=== PATIENT | male | born 1970 | race African-American/Black ===

== ENCOUNTER 2018-08-14 13:34 | Inpatient (IN) | payer OTHER ==
[2018-08-14 13:56] VITALS: BMI 25.1
--- NOTE | 2018-08-14 14:21 | HP ---
CIWA Score Nausea/Vomitin-Mild Nausea/No Vomiting Muscle Tremors: 4-Moderate,w/Arms Extend Anxiety: 4-Mod. Anxious/Guarded Agitation: 0-Normal Activity Paroxysmal Sweats: No Perspiration Orientation: 1-Uncertain about Date Tacttile Disturbances: 0-None Auditory Disturbances: 1-Very Mild Visual Disturbances: 1-Very Mild Sensitivity Headache: 2-Mild CIWA-Ar Total Score: 14 - Admission Criteria [facility]ASAS Guidelines: Admission for Medically Managed Detox: Requires at least one of the followin. CIWA greater than 12 2. Seizures within the past 24 hours 3. Delirium tremens within the past 24 hours 4. Hallucinations within the past 24 hours 5. Acute intervention needed for co occurring medical disorder 6. Acute intervention needed for co occurring psychiatric disorder 7. Severe withdrawal that cannot be handled at a lower level of care (continued vomiting, continued diarrhea, abnormal vital signs) requiring intravenous medication and/or fluids 8. Patient presents the following: CIWA greater than 12 Admission Criteria Met: Admission criteria met Admission ROS S - HPI Chief Complaint: I'm tired, I just need to stop it, stop using Allergies/Adverse Reactions: Allergies Allergy/AdvReac Type Severity Reaction Status Date / Time fish derived Allergy Severe Itching Verified 08/14/18 14:08 shellfish derived Allergy Severe Itching Verified 08/14/18 14:08 No Known Drug Allergies Allergy Verified 08/14/18 14:08 seafood Allergy Severe Itching Uncoded 08/14/18 14:08 History of Present Illness: 48 yo gentleman here for detox from alcohol, also using crack/cocaine. Denies seizures but has had black outs. States he gets very shaky if he tries to stop drinking. Exam Limitations: No Limitations - Ebola screening Have you traveled outside of the country in the last 21 days: No (N) Have you had contact with anyone from an Ebola affected area: No Have you been sick,other than usual withdrawal symptoms: No Do you have a fever: No - Review of Systems Constitutional: Loss of Appetite, Malaise, Night Sweats, Changes in sleep, Weakness EENT: reports: No Symptoms Reported Respiratory: reports: No Symptoms reported Cardiac: reports: No Symptoms Reported GI: reports: Nausea, Poor Appetite, Poor Fluid Intake, Indigestion, Abdominal cramping : reports: Frequency Musculoskeletal: reports: No Symptoms Reported Integumentary: reports: Dryness Neuro: reports: Headache, Tremors Endocrine: reports: No Symptoms Reported Hematology: reports: No Symptoms Reported Psychiatric: reports: Judgement Intact, Mood/Affect Appropiate, Orientated x3, Anxious Other Systems: Reviewed and Negative Patient History - Patient Medical History Hx Anemia: No Hx Asthma: No Hx Chronic Obstructive Pulmonary Disease (COPD): No Hx Cancer: No Hx Cardiac Disorders: No Hx Congestive Heart Failure: No Hx Hypertension: No Hx Hypercholesterolemia: No Hx Pacemaker: No HX Cerebrovascular Accident: No Hx Seizures: No Hx Diabetes: No Hx Gastrointestinal Disorders: No Hx Liver Disease: No Hx Genitourinary Disorders: No Hx Sexually Transmitted Disorders: No Hx Renal Disease (ESRD): No Hx Thyroid Disease: Yes (PT. CLAIMS HE HAD HYPOTHYROIDISM,WAS ON SYNTHROID,HIS DR STOPPED MEDS.) Hx Human Immunodeficiency Virus (HIV): No Hx Hepatitis C: No Hx Depression: No Hx Suicide Attempt: No (denies) Hx Bipolar Disorder: No Hx Schizophrenia: No - Patient Surgical History Past Surgical History: No Hx Neurologic Surgery: No Hx Cataract Extraction: No Hx Cardiac Surgery: No Hx Lung Surgery: No Hx Breast Surgery: No Hx Breast Biopsy: No Hx Abdominal Surgery: No Hx Appendectomy: No Hx Cholecystectomy: No Hx Genitourinary Surgery: No Hx Section: No Hx Orthopedic Surgery: No Other Surgical History: TRAUMATIC BRAIN INJURY AT AGE 17 - in coma 1.5 months Anesthesia Reaction: No - PPD History Previous Implant?: Yes Documented Results: Positive w/o proof (states he took INH) Implanted On Prior [facility] Admission?: No PPD to be Administered?: No - Reproductive History Patient is a Female of Child Bearing Age (11 -55 yrs old): No (male) - Smoking Cessation Smoking history: Current every day smoker Have you smoked in the past 12 months: Yes Aproximately how many cigarettes per day: 5 Cigars Per Day: 0 Hx Chewing Tobacco Use: No Initiated information on smoking cessation: Yes 'Breaking Loose' booklet given: 08/14/18 (give on floor) - Substance & Tx. History Hx Alcohol Use: Yes Hx Substance Use: Yes Substance Use Type: Alcohol, Cocaine, Marijuana Hx Substance Use Treatment: Yes (detox, rehab, [facility]) - Substances Abused Alcohol Route: Oral Frequency: Daily Amount used: 1 [place] Age of first use: 17 Date of Last Use: 08/13/18 Crack Route: Smoking Frequency: Daily Amount used: $20 BAG Age of first use: 17 Date of Last Use: 08/14/18 Marijuana/Hashish Route: Smoking Frequency: Daily Amount used: $5 Age of first use: 10 Date of Last Use: 08/13/18 Family Disease History - Family Disease History Family Disease History: Other: Grandparent ( - old age), Father ( , AIDS, drugs and etoh), Mother (living - no contact), Brother (eight, ? HYPERTHYROIDISM ?), Sister (three living - healthy) Admission Physical Exam [facility] - Vital Signs Vital Signs: Vital Signs - 24 hr 08/14/18 13:54 Temperature 97.1 F L Pulse Rate 56 L Respiratory 18 Rate Blood Pressure 98/60 - Physical General Appearance: Yes: Nourished, Appropriately Dressed, Moderate Distress, Tremorous, Irritable, Anxious HEENTM: Yes: Hearing grossly Normal, Normocephalic, Normal Voice, Pharynx Normal Respiratory: Yes: No Respiratory Distress, Rhonchi Neck: Yes: No masses,lesions,Nodules Breast: Yes: Breast Exam Deferred Cardiology: Yes: Regular Rhythm, Regular Rate Abdominal: Yes: Non Tender, Flat, Soft Genitourinary: Yes: Frequency Back: Yes: Normal Inspection Musculoskeletal: Yes: full range of Motion, Gait Steady Extremities: Yes: Normal Inspection, Non-Tender Neurological: Yes: Alert, Normal Mood/Affect, Normal Response Integumentary: Yes: Normal Color, Dry, Warm Lymphatic: Yes: Within Normal Limits - Diagnostic (1) Alcohol dependence with uncomplicated withdrawal Current Visit: Yes Status: Chronic (2) Cocaine dependence Current Visit: Yes Status: Acute (3) Nicotine dependence Current Visit: Yes Status: Chronic Qualifiers: Nicotine product type: cigarettes Substance use status: uncomplicated Qualified Code(s): F17.210 - Nicotine dependence, cigarettes, uncomplicated (4) PPD positive, treated Current Visit: Yes Status: Chronic (5) Cannabis dependence Current Visit: Yes Status: Chronic Cleared for Admission [facility] - Detox or Rehab [facility] Level of Care: Medically Managed Detox Regimen/Protocol: Librium [facility] Breath Alcohol Content Breath Alcohol Content: 0 Urine Drug Screen - Results Drug Screen Negative: No Urine Drug Screen Results: THC-Marijuana, RICKY-Cocaine
[2018-08-14] MEDS ORDERED: MAGNESIUM CITRATE 300 ML BOTTLE PO PRN (14:22)
[2018-08-14] MEDS ORDERED: MAGNESIUM HYDROX 2400MG/30ML ORAL SUSPENSION 30 ML CUP PO PRN (14:22)
[2018-08-14] MEDS ORDERED: NICOTINE POLACRILEX 4 MG GUM BUC PRN (14:22)
[2018-08-14] MEDS ORDERED: chlordiazePOXIDE HCL 25 MG CAPSULE PO PRN (14:22)
[2018-08-14] MEDS ORDERED: P-EPHED 60MG/TRIPROLIDI 2.5MG TABLET PO PRN (14:22)
[2018-08-14] MEDS ORDERED: guaiFENesin/D-METHORPHAN HB 10 ML UNIT-DOSE CUPS PO PRN (14:22)
[2018-08-14] MEDS ORDERED: MAG HYDROX/AL HYDROX/SIMETH 30 ML UNIT-DOSE CUP PO PRN (14:22)
[2018-08-14] MEDS ORDERED: IBUPROFEN 400 MG TABLET (FP) PO PRN (14:22)
[2018-08-14] MEDS ORDERED: LOPERAMIDE HCL 2 MG CAPSULE PO PRN (14:22)
[2018-08-14] MEDS ORDERED: MENTHOL/PHENOL 1 EACH UD MM PRN (14:22)
[2018-08-14] MEDS ORDERED: ACETAMINOPHEN 325 MG TABLET (FP) PO PRN (14:22)
[2018-08-14] MEDS: chlordiazePOXIDE HCL 25 MG CAPSULE PO SCH (17:39)
[2018-08-15] MEDS: THIAMINE HCL 100 MG TABLET (FP) PO SCH ×2 (00:21→22:27)
[2018-08-15] MEDS: chlordiazePOXIDE HCL 25 MG CAPSULE PO SCH ×5 (00:21→22:27)
[2018-08-15] MEDS: PRENATAL VITAMINS W/ FOLIC ACID TABLET (FP) PO SCH (09:31)
--- NOTE | 2018-08-15 10:59 | EKG ---
Test Reason : Blood Pressure : / mmHG Vent. Rate : 056 BPM Atrial Rate : 056 BPM P-R Int : 190 ms QRS Dur : 110 ms QT Int : 422 ms P-R-T Axes : 017 068 054 degrees QTc Int : 407 ms SINUS BRADYCARDIA MINIMAL VOLTAGE CRITERIA FOR LVH, MAY BE NORMAL VARIANT NO PREVIOUS ECGS AVAILABLE Confirmed by KELLY LÓPEZ MD ([id number]) on 08/15/2018 10:58:51 AM Referred By: Confirmed By:KELLY LÓPEZ MD
[2018-08-15 11:17] LABS: ALBUMIN 3.1 g/dl (3.4-5.0); ALK PHOS 44 U/L (45-117); ANION GAP 4 MMOL/L (8-16); BILIRUBIN,TOTAL 0.2 mg/dL (0.2-1); BLOOD UREA NITROGEN 10 mg/dL (7-18); CALCIUM 8.1 mg/dL (8.5-10.1); CHLORIDE 108 mmol/L (98-107); CO2 29 mmol/L (21-32); GLUCOSE,RANDOM 73 mg/dL (74-106); SGOT/AST 14 U/L (15-37); SGPT/ALT 23 U/L (13-61); SODIUM 141 mmol/L (136-145); TOT PROT 6.3 g/dl (6.4-8.2)
[2018-08-15 11:24] LABS: HEMATOCRIT 39.1 % (35.4-49); HEMOGLOBIN 13.5 GM/dL (11.7-16.9); MCH 33.3 pg (25.7-33.7); MCHC 34.6 g/dl (32.0-35.9); MEAN CELL VOLUME 96.2 fl (80-96); MEAN PLT VOLUME 8.1 fl (7.5-11.1); PLATELET COUNT 224 K/MM3 (134-434); RBC 4.06 M/mm3 (4.00-5.60); RDW 13.7 % (11.9-15.9)
[2018-08-15 11:29] LABS: URINE APPEARANCE CLEAR; URINE BILIRUBIN NEGATIVE (<2.0 mg/dL); URINE COLOR STRAW; URINE GLUCOSE (UA) NEGATIVE (NEGATIVE); URINE KETONE NEGATIVE (NEGATIVE); URINE LEUK ESTERASE NEGATIVE (NEGATIVE); URINE NITRITE NEGATIVE (NEGATIVE); URINE PROTEIN NEGATIVE (NEGATIVE); URINE UROBILINOGEN NEGATIVE mg/dL (0.2-1.0)
--- NOTE | 2018-08-15 17:08 | PN ---
S CIWA - CIWA Score Nausea/Vomitin Muscle Tremors: 4-Moderate,w/Arms Extend Anxiety: 4-Mod. Anxious/Guarded Agitation: 3 Paroxysmal Sweats: 3 Orientation: 0-Oriented Tacttile Disturbances: 1-Very Mild Itch/Numbness Auditory Disturbances: 0-None Visual Disturbances: 0-None Headache: 0-None Present CIWA-Ar Total Score: 17 BHS Progress Note (SOAP) Subjective: Interrupted sleep, anxious Objective: 08/15/18 17:07 Last Vital Signs Temp Pulse Resp BP Pulse Ox 96.3 F L 54 L 16 133/74 08/15/18 14:31 08/15/18 14:31 08/15/18 14:31 08/15/18 14:31 Laboratory Tests 08/15/18 08/15/18 08/15/18 07:20 07:20 07:20 WBC 4.0 RBC 4.06 Hgb 13.5 Hct 39.1 MCV 96.2 H MCH 33.3 MCHC 34.6 RDW 13.7 Plt Count 224 MPV 8.1 Sodium 141 Potassium 4.0 Chloride 108 H Carbon Dioxide 29 Anion Gap 4 L BUN 10 Creatinine 1.0 Creat Clearance w eGFR > 60 Random Glucose 73 L Calcium 8.1 L Total Bilirubin 0.2 AST 14 L ALT 23 Alkaline Phosphatase 44 L Total Protein 6.3 L Albumin 3.1 L Urine Color Urine Appearance Urine pH Ur Specific [place] Urine Protein Urine Glucose (UA) Urine Ketones Urine Blood Urine Nitrite Urine Bilirubin Urine Urobilinogen Ur Leukocyte Esterase RPR Titer Nonreactive 08/15/18 08:20 WBC RBC Hgb Hct MCV MCH MCHC RDW Plt Count MPV Sodium Potassium Chloride Carbon Dioxide Anion Gap BUN Creatinine Creat Clearance w eGFR Random Glucose Calcium Total Bilirubin AST ALT Alkaline Phosphatase Total Protein Albumin Urine Color Straw Urine Appearance Clear Urine pH 6.0 Ur Specific [place] 1.011 Urine Protein Negative Urine Glucose (UA) Negative Urine Ketones Negative Urine Blood Negative Urine Nitrite Negative Urine Bilirubin Negative Urine Urobilinogen Negative Ur Leukocyte Esterase Negative RPR Titer Labs reviewed Assessment: 08/15/18 17:07 Withdrawal symptoms Plan: Continue detox Encouraged PO water hydration
[2018-08-16] MEDS: chlordiazePOXIDE HCL 25 MG CAPSULE PO SCH ×2 (05:55→10:06)
[2018-08-16] MEDS: PRENATAL VITAMINS W/ FOLIC ACID TABLET (FP) PO SCH (10:06)
--- NOTE | 2018-08-16 12:27 | PN ---
[facility] CIWA - CIWA Score Nausea/Vomitin-No Nausea/No Vomiting Muscle Tremors: 3 Anxiety: 3 Agitation: 3 Paroxysmal Sweats: 2 Orientation: 0-Oriented Tacttile Disturbances: 0-None Auditory Disturbances: 0-None Visual Disturbances: 0-None Headache: 0-None Present CIWA-Ar Total Score: 11 S Progress Note (SOAP) Subjective: sweats feeling much better Objective: 08/16/18 12:26 Vital Signs Temperature 97.3 F L 08/16/18 11:17 Pulse Rate 57 L 08/16/18 11:17 Respiratory Rate 18 08/16/18 11:17 Blood Pressure 111/81 08/16/18 11:17 O2 Sat by Pulse Oximetry (%) Laboratory Tests 08/15/18 08/15/18 08/15/18 07:20 07:20 07:20 WBC 4.0 RBC 4.06 Hgb 13.5 Hct 39.1 MCV 96.2 H MCH 33.3 MCHC 34.6 RDW 13.7 Plt Count 224 MPV 8.1 Sodium 141 Potassium 4.0 Chloride 108 H Carbon Dioxide 29 Anion Gap 4 L BUN 10 Creatinine 1.0 Creat Clearance w eGFR > 60 Random Glucose 73 L Calcium 8.1 L Total Bilirubin 0.2 AST 14 L ALT 23 Alkaline Phosphatase 44 L Total Protein 6.3 L Albumin 3.1 L Urine Color Urine Appearance Urine pH Ur Specific [place] Urine Protein Urine Glucose (UA) Urine Ketones Urine Blood Urine Nitrite Urine Bilirubin Urine Urobilinogen Ur Leukocyte Esterase RPR Titer Nonreactive 08/15/18 08:20 WBC RBC Hgb Hct MCV MCH MCHC RDW Plt Count MPV Sodium Potassium Chloride Carbon Dioxide Anion Gap BUN Creatinine Creat Clearance w eGFR Random Glucose Calcium Total Bilirubin AST ALT Alkaline Phosphatase Total Protein Albumin Urine Color Straw Urine Appearance Clear Urine pH 6.0 Ur Specific [place] 1.011 Urine Protein Negative Urine Glucose (UA) Negative Urine Ketones Negative Urine Blood Negative Urine Nitrite Negative Urine Bilirubin Negative Urine Urobilinogen Negative Ur Leukocyte Esterase Negative RPR Titer [id number] ambulating no acute distress Assessment: 08/16/18 12:27 withdrawal sx Plan: continue detox increase fluids
[2018-08-16] MEDS: chlordiazePOXIDE 5 MG CAPSULE PO SCH ×2 (18:05→22:12)
[2018-08-16] MEDS: THIAMINE HCL 100 MG TABLET (FP) PO SCH (22:12)
[2018-08-16] MEDS: MELATONIN 5 MG TABLETS PO PRN (22:12)
[2018-08-17] MEDS: chlordiazePOXIDE 5 MG CAPSULE PO SCH ×2 (05:16→10:21)
--- NOTE | 2018-08-17 09:21 | PN ---
[facility] Progress Note (SOAP) Subjective: feeling better anxious Objective: 08/17/18 09:23 Vital Signs Temperature 97.0 F L 08/17/18 09:12 Pulse Rate 64 08/17/18 09:12 Respiratory Rate 18 08/17/18 09:12 Blood Pressure 123/72 08/17/18 09:12 O2 Sat by Pulse Oximetry (%) aaox3 ambulating no acute distress Assessment: 08/17/18 09:24 mild withdrawal sx Plan: continue detox increase fluids d/c in am
[2018-08-17] MEDS: PRENATAL VITAMINS W/ FOLIC ACID TABLET (FP) PO SCH (10:21)
[2018-08-17] MEDS: chlordiazePOXIDE HCL 10 MG CAPSULE PO SCH ×2 (18:32→22:13)
[2018-08-17] MEDS: MELATONIN 5 MG TABLETS PO PRN (22:13)
[2018-08-17] MEDS: THIAMINE HCL 100 MG TABLET (FP) PO SCH (22:13)
[2018-08-18] MEDS: chlordiazePOXIDE HCL 10 MG CAPSULE PO SCH (05:25)
--- NOTE | 2018-08-18 08:44 | DS ---
[facility] Detox Discharge Summary Admission Date: 08/14/18 Discharge Date: 08/18/18 - History Present History: Alcohol Dependence, Cannabis Dependence, Cocaine Dependence - Physical Exam Results Vital Signs: Vital Signs Temperature 96.8 F L 08/18/18 08:20 Pulse Rate 64 08/18/18 08:20 Respiratory Rate 18 08/18/18 08:20 Blood Pressure 111/52 L 08/18/18 08:20 O2 Sat by Pulse Oximetry (%) - Treatment Hospital Course: Detox Protocol Followed, Detoxed Safely, Responded well, Discharged Condition Good, Rehab Referral Accepted - Medication Discharge Medications: Ambulatory Orders NK [No Known Home Medication] 06/12/14 - Diagnosis (1) Alcohol dependence with uncomplicated withdrawal Current Visit: Yes Status: Chronic (2) Cannabis dependence Current Visit: Yes Status: Chronic (3) Cocaine dependence Current Visit: Yes Status: Chronic (4) Nicotine dependence Current Visit: Yes Status: Chronic Qualifiers: Nicotine product type: cigarettes Substance use status: uncomplicated Qualified Code(s): F17.210 - Nicotine dependence, cigarettes, uncomplicated (5) PPD positive, treated Current Visit: Yes Status: Chronic - AMA Did Patient Leave Against Medical Advice: No (referred to outpatient)
[2018-08-18 09:22] VITALS: BP 136/86; PULSE 56; TEMP 95.7
== END 2018-08-18 09:01 | disposition home or self-care (01) | DRG 774 ==
LOC: YASAS 13:34 → Y6N 14:55
PROVIDERS: ADMIT Neuromusculoskeletal Medicine & OMM; ATTEND Neuromusculoskeletal Medicine & OMM
PROC: HZ2ZZZZ Detoxification Services for Substance Abuse Treatment (ICD-10-PCS; principal; 2018-08-14)
DX: F10.230 Alcohol dependence with withdrawal, uncomplicated (principal); F14.20 Cocaine dependence, uncomplicated; F12.20 Cannabis dependence, uncomplicated; F17.210 Nicotine dependence, cigarettes, uncomplicated; R76.11 Nonspecific reaction to tuberculin skin test without active tuberculosis; Z87.820 Personal history of traumatic brain injury; Z91.013 Allergy to seafood; Z59.0 Homelessness
CPT/HCPCS: 36415; 71046-TC-FY; 80053; 81003; 85027; 86593; 87389; 93005; 93010

== ENCOUNTER 2020-12-25 14:58 | Inpatient (IN) | payer OTHER ==
[2020-12-25 17:38] VITALS: BMI 22.1
[2020-12-25] MEDS ORDERED: MAG HYDROX/AL HYDROX/SIMETH 30 ML UNIT-DOSE CUP PO PRN (21:39)
[2020-12-25] MEDS ORDERED: LOPERAMIDE HCL 2 MG CAPSULE PO PRN (21:39)
[2020-12-25] MEDS ORDERED: ACETAMINOPHEN 325 MG TABLET (FP) PO PRN (21:39)
[2020-12-25] MEDS ORDERED: IBUPROFEN 400 MG TABLET (FP) PO PRN (21:39)
[2020-12-25] MEDS ORDERED: P-EPHED 60MG/TRIPROLIDI 2.5MG TABLET PO PRN (21:39)
[2020-12-25] MEDS ORDERED: guaiFENesin 200 MG/10 ML 10 ML UNIT-DOSE CUPS PO PRN (21:39)
[2020-12-25] MEDS ORDERED: NICOTINE POLACRILEX 2 MG GUM BC PRN (21:39)
[2020-12-25] MEDS ORDERED: MAGNESIUM CITRATE 300 ML BOTTLE PO PRN (21:39)
[2020-12-25] MEDS ORDERED: MAGNESIUM HYDROX 2400MG/30ML ORAL SUSPENSION 30 ML CUP PO PRN (21:39)
[2020-12-25] MEDS ORDERED: hydrOXYzine PAMOATE 25 MG CAPSULE (FP) PO SCH (22:00)
[2020-12-25] MEDS: THIAMINE HCL 100 MG TABLET (FP) PO SCH (23:17)
[2020-12-25] MEDS: MELATONIN 5 MG TABLETS PO SCH (23:18)
[2020-12-26 11:05] LABS: HEMATOCRIT 39.9 % (35.4-49); HEMOGLOBIN 13.3 GM/dL (11.7-16.9); MCH 32.6 pg (25.7-33.7); MCHC 33.5 g/dl (32.0-35.9); MEAN CELL VOLUME 97.6 fl (80-96); MEAN PLT VOLUME 8.3 fl (7.5-11.1); PLATELET COUNT 243 K/MM3 (134-434); RBC 4.09 M/mm3 (4.00-5.60); RDW 13.7 % (11.9-15.9); WHITE BLOOD COUNT 3.8 K/mm3 (4.0-10.0)
[2020-12-26] MEDS: NICOTINE 14 MG/24 HOURS TOPICAL PATCH TD SCH (11:08)
[2020-12-26] MEDS: PRENATAL VITAMINS W/ FOLIC ACID TABLET (FP) PO SCH (11:08)
[2020-12-26 11:31] LABS: ALBUMIN 3.2 g/dl (3.4-5.0); BLOOD UREA NITROGEN 12.5 mg/dL (7-18); CALCIUM 8.5 mg/dL (8.5-10.1)
[2020-12-26 11:34] LABS: CREATININE 0.8 mg/dL (0.55-1.3)
[2020-12-26 11:36] LABS: BILIRUBIN,TOTAL 0.4 mg/dL (0.2-1); TOT PROT 6.6 g/dl (6.4-8.2)
[2020-12-26 11:41] LABS: HIV INTERPRETATION NEGATIVE (NEGATIVE)
[2020-12-26] MEDS: MELATONIN 5 MG TABLETS PO SCH (21:39)
[2020-12-26] MEDS: THIAMINE HCL 100 MG TABLET (FP) PO SCH (21:39)
[2020-12-27] MEDS: NICOTINE 14 MG/24 HOURS TOPICAL PATCH TD SCH (09:57)
[2020-12-27] MEDS: PRENATAL VITAMINS W/ FOLIC ACID TABLET (FP) PO SCH (09:57)
[2020-12-27] MEDS: MELATONIN 5 MG TABLETS PO SCH (21:47)
[2020-12-27] MEDS: THIAMINE HCL 100 MG TABLET (FP) PO SCH (21:48)
[2020-12-28] MEDS: PRENATAL VITAMINS W/ FOLIC ACID TABLET (FP) PO SCH (10:11)
[2020-12-28] MEDS: NICOTINE 14 MG/24 HOURS TOPICAL PATCH TD SCH (10:12)
[2020-12-28] MEDS: BACITRACIN 0.9 GM PACKET TP SCH ×2 (10:50→21:49)
[2020-12-28] MEDS: TOLNAFTATE 1% CREAM 15 GM TUBE TP SCH ×2 (10:50→21:50)
[2020-12-28 18:26] LABS: PH,URINE 7.5 (5.0-8.0); URINE APPEARANCE CLEAR; URINE BILIRUBIN NEGATIVE (NEGATIVE); URINE COLOR YELLOW; URINE GLUCOSE (UA) NEGATIVE (NEGATIVE); URINE KETONE NEGATIVE (NEGATIVE); URINE LEUK ESTERASE NEGATIVE (NEGATIVE); URINE NITRITE NEGATIVE (NEGATIVE); URINE PROTEIN NEGATIVE (NEGATIVE); URINE UROBILINOGEN 0.2 mg/dL (0.2-1.0)
[2020-12-28] MEDS ORDERED: PT OWN MED DRAWER 7, Y5N ONE (20:23)
[2020-12-28] MEDS: MELATONIN 5 MG TABLETS PO SCH (21:49)
[2020-12-28] MEDS: THIAMINE HCL 100 MG TABLET (FP) PO SCH (21:49)
[2020-12-29] MEDS: PRENATAL VITAMINS W/ FOLIC ACID TABLET (FP) PO SCH (10:21)
[2020-12-29] MEDS: NICOTINE 14 MG/24 HOURS TOPICAL PATCH TD SCH (10:21)
[2020-12-29] MEDS: BACITRACIN 0.9 GM PACKET TP SCH ×2 (10:22→21:43)
[2020-12-29] MEDS: TOLNAFTATE 1% CREAM 15 GM TUBE TP SCH ×2 (10:22→21:44)
[2020-12-29] MEDS: THIAMINE HCL 100 MG TABLET (FP) PO SCH (21:42)
[2020-12-29] MEDS: MELATONIN 5 MG TABLETS PO SCH (21:42)
[2020-12-29] MEDS: QUEtiapine FUMARATE 50 MG TABLET PO SCH (21:42)
[2020-12-30] MEDS: BACITRACIN 0.9 GM PACKET TP SCH ×2 (10:31→21:40)
[2020-12-30] MEDS: NICOTINE 14 MG/24 HOURS TOPICAL PATCH TD SCH (10:31)
[2020-12-30] MEDS: PRENATAL VITAMINS W/ FOLIC ACID TABLET (FP) PO SCH (10:31)
[2020-12-30] MEDS: TOLNAFTATE 1% CREAM 15 GM TUBE TP SCH ×2 (10:32→21:40)
[2020-12-30] MEDS: THIAMINE HCL 100 MG TABLET (FP) PO SCH (21:39)
[2020-12-30] MEDS: MELATONIN 5 MG TABLETS PO SCH (21:39)
[2020-12-30] MEDS: QUEtiapine FUMARATE 50 MG TABLET PO SCH (21:40)
[2020-12-31] MEDS: PRENATAL VITAMINS W/ FOLIC ACID TABLET (FP) PO SCH (10:21)
[2020-12-31] MEDS: NICOTINE 14 MG/24 HOURS TOPICAL PATCH TD SCH (10:21)
[2020-12-31] MEDS: BACITRACIN 0.9 GM PACKET TP SCH ×2 (10:21→21:42)
[2020-12-31] MEDS: TOLNAFTATE 1% CREAM 15 GM TUBE TP SCH ×2 (10:22→21:42)
[2020-12-31] MEDS: THIAMINE HCL 100 MG TABLET (FP) PO SCH (21:41)
[2020-12-31] MEDS: MELATONIN 5 MG TABLETS PO SCH (21:41)
[2020-12-31] MEDS: QUEtiapine FUMARATE 50 MG TABLET PO SCH (21:42)
[2021-01-01] MEDS: PRENATAL VITAMINS W/ FOLIC ACID TABLET (FP) PO SCH (10:18)
[2021-01-01] MEDS: NICOTINE 14 MG/24 HOURS TOPICAL PATCH TD SCH (10:18)
[2021-01-01] MEDS: BACITRACIN 0.9 GM PACKET TP SCH ×2 (10:18→21:36)
[2021-01-01] MEDS: TOLNAFTATE 1% CREAM 15 GM TUBE TP SCH ×2 (10:19→21:36)
[2021-01-01] MEDS: QUEtiapine FUMARATE 50 MG TABLET PO SCH (21:35)
[2021-01-01] MEDS: MELATONIN 5 MG TABLETS PO SCH (21:35)
[2021-01-01] MEDS: THIAMINE HCL 100 MG TABLET (FP) PO SCH (21:35)
[2021-01-02] MEDS: PRENATAL VITAMINS W/ FOLIC ACID TABLET (FP) PO SCH (10:17)
[2021-01-02] MEDS: NICOTINE 14 MG/24 HOURS TOPICAL PATCH TD SCH (10:17)
[2021-01-02] MEDS: BACITRACIN 0.9 GM PACKET TP SCH ×2 (10:18→21:45)
[2021-01-02] MEDS: TOLNAFTATE 1% CREAM 15 GM TUBE TP SCH ×2 (10:18→21:48)
[2021-01-02] MEDS: THIAMINE HCL 100 MG TABLET (FP) PO SCH (21:45)
[2021-01-02] MEDS: QUEtiapine FUMARATE 100 MG TABLET (FP) PO SCH (21:45)
[2021-01-02] MEDS: MELATONIN 5 MG TABLETS PO SCH (21:45)
[2021-01-03] MEDS: PRENATAL VITAMINS W/ FOLIC ACID TABLET (FP) PO SCH (10:34)
[2021-01-03] MEDS: BACITRACIN 0.9 GM PACKET TP SCH ×2 (10:35→21:47)
[2021-01-03] MEDS: TOLNAFTATE 1% CREAM 15 GM TUBE TP SCH ×2 (10:35→21:48)
[2021-01-03] MEDS: NICOTINE 14 MG/24 HOURS TOPICAL PATCH TD SCH (10:35)
[2021-01-03] MEDS: QUEtiapine FUMARATE 100 MG TABLET (FP) PO SCH (21:46)
[2021-01-03] MEDS: THIAMINE HCL 100 MG TABLET (FP) PO SCH (21:46)
[2021-01-03] MEDS: MELATONIN 5 MG TABLETS PO SCH (21:47)
[2021-01-04] MEDS: PRENATAL VITAMINS W/ FOLIC ACID TABLET (FP) PO SCH (10:17)
[2021-01-04] MEDS: BACITRACIN 0.9 GM PACKET TP SCH ×2 (10:18→21:26)
[2021-01-04] MEDS: NICOTINE 14 MG/24 HOURS TOPICAL PATCH TD SCH (10:18)
[2021-01-04] MEDS: TOLNAFTATE 1% CREAM 15 GM TUBE TP SCH ×2 (10:18→21:27)
[2021-01-04] MEDS: THIAMINE HCL 100 MG TABLET (FP) PO SCH (21:25)
[2021-01-04] MEDS: QUEtiapine FUMARATE 100 MG TABLET (FP) PO SCH (21:25)
[2021-01-04] MEDS: MELATONIN 5 MG TABLETS PO SCH (21:25)
[2021-01-05] MEDS: BACITRACIN 0.9 GM PACKET TP SCH ×2 (09:56→21:19)
[2021-01-05] MEDS: NICOTINE 14 MG/24 HOURS TOPICAL PATCH TD SCH (09:56)
[2021-01-05] MEDS: PRENATAL VITAMINS W/ FOLIC ACID TABLET (FP) PO SCH (09:57)
[2021-01-05] MEDS: TOLNAFTATE 1% CREAM 15 GM TUBE TP SCH ×2 (09:57→21:20)
[2021-01-05] MEDS: THIAMINE HCL 100 MG TABLET (FP) PO SCH (21:19)
[2021-01-05] MEDS: MELATONIN 5 MG TABLETS PO SCH (21:19)
[2021-01-05] MEDS: QUEtiapine FUMARATE 100 MG TABLET (FP) PO SCH (21:19)
[2021-01-06 05:15] VITALS: TEMP 97.1
[2021-01-06] MEDS: PRENATAL VITAMINS W/ FOLIC ACID TABLET (FP) PO SCH (09:51)
[2021-01-06] MEDS: NICOTINE 14 MG/24 HOURS TOPICAL PATCH TD SCH (09:51)
[2021-01-06] MEDS: TOLNAFTATE 1% CREAM 15 GM TUBE TP SCH ×2 (09:52→21:52)
[2021-01-06] MEDS: BACITRACIN 0.9 GM PACKET TP SCH ×2 (09:52→21:52)
[2021-01-06] MEDS: MELATONIN 5 MG TABLETS PO SCH (21:52)
[2021-01-06] MEDS: QUEtiapine FUMARATE 100 MG TABLET (FP) PO SCH (21:52)
[2021-01-06] MEDS: THIAMINE HCL 100 MG TABLET (FP) PO SCH (21:52)
[2021-01-07] MEDS: PRENATAL VITAMINS W/ FOLIC ACID TABLET (FP) PO SCH (09:58)
[2021-01-07] MEDS: TOLNAFTATE 1% CREAM 15 GM TUBE TP SCH ×2 (09:59→23:01)
[2021-01-07] MEDS: NICOTINE 14 MG/24 HOURS TOPICAL PATCH TD SCH (09:59)
[2021-01-07] MEDS: BACITRACIN 0.9 GM PACKET TP SCH ×2 (09:59→23:00)
[2021-01-07] MEDS: MELATONIN 5 MG TABLETS PO SCH (23:01)
[2021-01-07] MEDS: QUEtiapine FUMARATE 100 MG TABLET (FP) PO SCH (23:01)
[2021-01-07] MEDS: THIAMINE HCL 100 MG TABLET (FP) PO SCH (23:01)
[2021-01-08 07:13] VITALS: BP 117/72; PULSE 70
[2021-01-08] MEDS: PRENATAL VITAMINS W/ FOLIC ACID TABLET (FP) PO SCH (09:18)
[2021-01-08] MEDS: TOLNAFTATE 1% CREAM 15 GM TUBE TP SCH (09:18)
[2021-01-08] MEDS: BACITRACIN 0.9 GM PACKET TP SCH (09:18)
[2021-01-08] MEDS: NICOTINE 14 MG/24 HOURS TOPICAL PATCH TD SCH (09:18)
== END 2021-01-08 09:35 | disposition home or self-care (01) | DRG 772 ==
LOC: YASAS 14:58 → Y5N 21:55
PROVIDERS: ADMIT Allergy & Immunology; ATTEND Allergy & Immunology
PROC: HZ42ZZZ Group Counseling for Substance Abuse Treatment, Cognitive-Behavioral (ICD-10-PCS; principal; 2020-12-25)
DX: F10.20 Alcohol dependence, uncomplicated (principal); F14.20 Cocaine dependence, uncomplicated; F12.20 Cannabis dependence, uncomplicated; F17.210 Nicotine dependence, cigarettes, uncomplicated; F19.282 Other psychoactive substance dependence with psychoactive substance-induced sleep disorder; E03.9 Hypothyroidism, unspecified; B35.3 Tinea pedis; L84 Corns and callosities; R76.11 Nonspecific reaction to tuberculin skin test without active tuberculosis
CPT/HCPCS: 36415; 71046-TC-FY; 73660-TC-FY; 80053; 81003; 85027; 86780; 87389; C9803; U0003; U0005

== ENCOUNTER 2021-06-28 17:42 | Inpatient (IN) | payer OTHER ==
[2021-06-28 19:09] VITALS: BMI 21.8
[2021-06-28] MEDS ORDERED: P-EPHED 60MG/TRIPROLIDI 2.5MG TABLET PO PRN (21:26)
[2021-06-28] MEDS ORDERED: MAG HYDROX/AL HYDROX/SIMETH 30 ML UNIT-DOSE CUP PO PRN (21:26)
[2021-06-28] MEDS ORDERED: NICOTINE POLACRILEX 2 MG GUM BC PRN (21:26)
[2021-06-28] MEDS ORDERED: IBUPROFEN 400 MG TABLET (FP) PO PRN (21:26)
[2021-06-28] MEDS ORDERED: guaiFENesin 200 MG/10 ML 10 ML UNIT-DOSE CUPS PO PRN (21:26)
[2021-06-28] MEDS ORDERED: MAGNESIUM CITRATE 300 ML BOTTLE PO PRN (21:26)
[2021-06-28] MEDS ORDERED: ACETAMINOPHEN 325 MG TABLET (FP) PO PRN (21:26)
[2021-06-28] MEDS ORDERED: MAGNESIUM HYDROX 2400MG/30ML ORAL SUSPENSION 30 ML CUP PO PRN (21:26)
[2021-06-28] MEDS ORDERED: LOPERAMIDE HCL 2 MG CAPSULE PO PRN (21:26)
[2021-06-29] MEDS: MELATONIN 5 MG TABLETS PO SCH ×2 (01:33→22:49)
[2021-06-29] MEDS: THIAMINE HCL 100 MG TABLET (FP) PO SCH ×2 (01:33→22:49)
[2021-06-29] MEDS: PRENATAL VITAMINS W/ FOLIC ACID TABLET (FP) PO SCH (10:18)
[2021-06-29] MEDS: NICOTINE 14 MG/24 HOURS TOPICAL PATCH TD SCH (10:18)
[2021-06-29 12:29] LABS: HEMATOCRIT 37.8 % (35.4-49); HEMOGLOBIN 12.6 GM/dL (11.7-16.9); MCH 32.7 pg (25.7-33.7); MCHC 33.2 g/dl (32.0-35.9); MEAN CELL VOLUME 98.5 fl (80-96); MEAN PLT VOLUME 7.7 fl (7.5-11.1); PLATELET COUNT 266 10^3/uL (134-434); RBC 3.84 M/mm3 (4.00-5.60); RDW 13.8 % (11.9-15.9); WHITE BLOOD COUNT 4.4 K/mm3 (4.0-10.0)
[2021-06-29 12:34] LABS: CALCIUM 8.6 mg/dL (8.5-10.1)
[2021-06-29 12:35] LABS: ALBUMIN 3.1 g/dl (3.4-5.0)
[2021-06-29 12:39] LABS: CREATININE 1.1 mg/dL (0.55-1.3)
[2021-06-29 12:40] LABS: TOT PROT 6.7 g/dl (6.4-8.2)
[2021-06-29 12:41] LABS: BILIRUBIN,TOTAL 0.2 mg/dL (0.2-1)
[2021-06-29 13:11] LABS: HIV INTERPRETATION NEGATIVE (NEGATIVE)
[2021-06-29 21:36] LABS: PH,URINE 5.5 (5.0-8.0); URINE APPEARANCE CLEAR; URINE BILIRUBIN NEGATIVE (NEGATIVE); URINE COLOR YELLOW; URINE GLUCOSE (UA) NEGATIVE (NEGATIVE); URINE KETONE TRACE (NEGATIVE); URINE LEUK ESTERASE NEGATIVE (NEGATIVE); URINE NITRITE NEGATIVE (NEGATIVE); URINE PROTEIN TRACE (NEGATIVE); URINE UROBILINOGEN 0.2 mg/dL (0.2-1.0)
[2021-06-30] MEDS: NICOTINE 14 MG/24 HOURS TOPICAL PATCH TD SCH (10:04)
[2021-06-30] MEDS: PRENATAL VITAMINS W/ FOLIC ACID TABLET (FP) PO SCH (10:04)
[2021-06-30] MEDS ORDERED: diphenhydrAMINE HCL 25 MG CAPSULE (FP) PO ONE (11:16)
[2021-06-30] MEDS: CALAMINE 8% TOPICAL LOTION 177 ML BOTTLE TP PRN (11:33)
[2021-06-30] MEDS: MELATONIN 5 MG TABLETS PO SCH (21:32)
[2021-06-30] MEDS: THIAMINE HCL 100 MG TABLET (FP) PO SCH (21:32)
[2021-07-01] MEDS: CALAMINE 8% TOPICAL LOTION 177 ML BOTTLE TP PRN (09:50)
[2021-07-01] MEDS: PRENATAL VITAMINS W/ FOLIC ACID TABLET (FP) PO SCH (11:20)
[2021-07-01] MEDS: NICOTINE 14 MG/24 HOURS TOPICAL PATCH TD SCH (11:20)
[2021-07-01] MEDS: HYDROCORTISONE 1% TOPICAL CREAM 30 GM TUBE TP SCH ×2 (12:52→21:54)
[2021-07-01] MEDS: MELATONIN 5 MG TABLETS PO SCH (21:54)
[2021-07-01] MEDS: THIAMINE HCL 100 MG TABLET (FP) PO SCH (21:54)
[2021-07-02] MEDS: HYDROCORTISONE 1% TOPICAL CREAM 30 GM TUBE TP SCH ×2 (10:42→21:25)
[2021-07-02] MEDS: NICOTINE 14 MG/24 HOURS TOPICAL PATCH TD SCH (10:43)
[2021-07-02] MEDS: PRENATAL VITAMINS W/ FOLIC ACID TABLET (FP) PO SCH (10:44)
[2021-07-02] MEDS: THIAMINE HCL 100 MG TABLET (FP) PO SCH (21:25)
[2021-07-02] MEDS: MELATONIN 5 MG TABLETS PO SCH (21:25)
[2021-07-03] MEDS ORDERED: PERMETHRIN 5% TOPICAL CREAM 60 GM TUBE TP ONE ×2 (10:12→22:00)
[2021-07-03] MEDS: HYDROCORTISONE 1% TOPICAL CREAM 30 GM TUBE TP SCH ×2 (10:40→21:14)
[2021-07-03] MEDS: LIDOCAINE 5% TOPICAL PATCH TP SCH (10:41)
[2021-07-03] MEDS: NICOTINE 14 MG/24 HOURS TOPICAL PATCH TD SCH (10:41)
[2021-07-03] MEDS: PRENATAL VITAMINS W/ FOLIC ACID TABLET (FP) PO SCH (10:41)
[2021-07-03] MEDS: LIDOCAINE PATCH REMOVAL MC SCH (21:14)
[2021-07-03] MEDS: MELATONIN 5 MG TABLETS PO SCH (21:16)
[2021-07-03] MEDS: THIAMINE HCL 100 MG TABLET (FP) PO SCH (21:16)
[2021-07-04] MEDS: HYDROCORTISONE 1% TOPICAL CREAM 30 GM TUBE TP SCH ×2 (09:22→22:50)
[2021-07-04] MEDS: LIDOCAINE 5% TOPICAL PATCH TP SCH (09:22)
[2021-07-04] MEDS: NICOTINE 14 MG/24 HOURS TOPICAL PATCH TD SCH (09:23)
[2021-07-04] MEDS: PRENATAL VITAMINS W/ FOLIC ACID TABLET (FP) PO SCH (09:23)
[2021-07-04] MEDS: MELATONIN 5 MG TABLETS PO SCH (22:50)
[2021-07-04] MEDS: THIAMINE HCL 100 MG TABLET (FP) PO SCH (22:50)
[2021-07-04] MEDS: LIDOCAINE PATCH REMOVAL MC SCH (23:42)
[2021-07-05] MEDS: PRENATAL VITAMINS W/ FOLIC ACID TABLET (FP) PO SCH (09:14)
[2021-07-05] MEDS: NICOTINE 14 MG/24 HOURS TOPICAL PATCH TD SCH (09:14)
[2021-07-05] MEDS: LIDOCAINE 5% TOPICAL PATCH TP SCH (09:14)
[2021-07-05] MEDS: HYDROCORTISONE 1% TOPICAL CREAM 30 GM TUBE TP SCH ×2 (09:14→21:03)
[2021-07-05] MEDS: hydrOXYzine PAMOATE 25 MG CAPSULE (FP) PO PRN ×2 (09:15→21:01)
[2021-07-05] MEDS: QUEtiapine FUMARATE 25 MG TABLET PO SCH (21:01)
[2021-07-05] MEDS: THIAMINE HCL 100 MG TABLET (FP) PO SCH (21:01)
[2021-07-05] MEDS: LIDOCAINE PATCH REMOVAL MC SCH (23:00)
[2021-07-06] MEDS: NICOTINE 14 MG/24 HOURS TOPICAL PATCH TD SCH (10:35)
[2021-07-06] MEDS: LIDOCAINE 5% TOPICAL PATCH TP SCH (10:35)
[2021-07-06] MEDS: PRENATAL VITAMINS W/ FOLIC ACID TABLET (FP) PO SCH (10:35)
[2021-07-06] MEDS: HYDROCORTISONE 1% TOPICAL CREAM 30 GM TUBE TP SCH ×2 (10:35→22:07)
[2021-07-06] MEDS: hydrOXYzine PAMOATE 25 MG CAPSULE (FP) PO PRN ×2 (10:36→22:06)
[2021-07-06] MEDS: THIAMINE HCL 100 MG TABLET (FP) PO SCH (22:06)
[2021-07-06] MEDS: QUEtiapine FUMARATE 25 MG TABLET PO SCH (22:06)
[2021-07-06] MEDS: LIDOCAINE PATCH REMOVAL MC SCH (22:07)
[2021-07-07] MEDS: PRENATAL VITAMINS W/ FOLIC ACID TABLET (FP) PO SCH (10:15)
[2021-07-07] MEDS: NICOTINE 14 MG/24 HOURS TOPICAL PATCH TD SCH (10:15)
[2021-07-07] MEDS: HYDROCORTISONE 1% TOPICAL CREAM 30 GM TUBE TP SCH ×2 (10:16→21:32)
[2021-07-07] MEDS: LIDOCAINE 5% TOPICAL PATCH TP SCH (10:16)
[2021-07-07] MEDS: hydrOXYzine PAMOATE 25 MG CAPSULE (FP) PO PRN ×2 (10:17→21:33)
[2021-07-07] MEDS: THIAMINE HCL 100 MG TABLET (FP) PO SCH (21:31)
[2021-07-07] MEDS: QUEtiapine FUMARATE 25 MG TABLET PO SCH (21:31)
[2021-07-07] MEDS: LIDOCAINE PATCH REMOVAL MC SCH (21:32)
[2021-07-08] MEDS: hydrOXYzine PAMOATE 25 MG CAPSULE (FP) PO PRN (06:09)
[2021-07-08 07:21] VITALS: BP 118/67; PULSE 86; TEMP 98.8
[2021-07-08] MEDS: NICOTINE 14 MG/24 HOURS TOPICAL PATCH TD SCH (09:42)
[2021-07-08] MEDS: LIDOCAINE 5% TOPICAL PATCH TP SCH (09:42)
[2021-07-08] MEDS: HYDROCORTISONE 1% TOPICAL CREAM 30 GM TUBE TP SCH (09:42)
[2021-07-08] MEDS: PRENATAL VITAMINS W/ FOLIC ACID TABLET (FP) PO SCH (09:44)
== END 2021-07-08 10:00 | disposition home or self-care (01) | DRG 772 ==
LOC: YASAS 17:42 → Y3W 21:23
PROVIDERS: ADMIT Allergy & Immunology; ATTEND Allergy & Immunology
PROC: HZ42ZZZ Group Counseling for Substance Abuse Treatment, Cognitive-Behavioral (ICD-10-PCS; principal; 2021-06-28)
DX: F10.20 Alcohol dependence, uncomplicated (principal); F14.20 Cocaine dependence, uncomplicated; F12.20 Cannabis dependence, uncomplicated; F17.210 Nicotine dependence, cigarettes, uncomplicated; F19.24 Other psychoactive substance dependence with psychoactive substance-induced mood disorder; F19.282 Other psychoactive substance dependence with psychoactive substance-induced sleep disorder; F32.A Depression, unspecified; E03.9 Hypothyroidism, unspecified; G47.00 Insomnia, unspecified; R59.9 Enlarged lymph nodes, unspecified; B86 Scabies; R00.1 Bradycardia, unspecified; Z86.11 Personal history of tuberculosis; Z91.013 Allergy to seafood; Z56.0 Unemployment, unspecified; Z59.00 Homelessness unspecified
CPT/HCPCS: 36415; 73060-TC-LT-FY; 73090-TC-LT-FY; 73630-TC-LT; 80053; 81003; 85027; 86780; 87389; 87811; 93005; 93010; C9803; U0003; U0005

== ENCOUNTER 2022-04-10 19:39 | Inpatient (IN) | payer OTHER ==
[2022-04-10 20:32] VITALS: BMI 21.5
[2022-04-10] MEDS ORDERED: LOPERAMIDE HCL 2 MG CAPSULE PO PRN (21:24)
[2022-04-10] MEDS ORDERED: MAG HYDROX/AL HYDROX/SIMETH 30 ML UNIT-DOSE CUP PO PRN (21:24)
[2022-04-10] MEDS ORDERED: MAGNESIUM HYDROX 2400MG/30ML ORAL SUSPENSION 30 ML CUP PO PRN (21:24)
[2022-04-10] MEDS ORDERED: MAGNESIUM CITRATE 300 ML BOTTLE PO PRN (21:24)
[2022-04-10] MEDS ORDERED: ACETAMINOPHEN 325 MG TABLET (FP) PO PRN (21:24)
[2022-04-10] MEDS ORDERED: guaiFENesin 200 MG/10 ML 10 ML UNIT-DOSE CUPS PO PRN (21:24)
[2022-04-10] MEDS ORDERED: P-EPHED 60MG/TRIPROLIDI 2.5MG TABLET PO PRN (21:24)
[2022-04-10] MEDS ORDERED: hydrOXYzine PAMOATE 25 MG CAPSULE (FP) PO PRN (21:24)
[2022-04-10] MEDS ORDERED: NICOTINE POLACRILEX 2 MG GUM BC PRN (21:24)
[2022-04-10] MEDS ORDERED: IBUPROFEN 400 MG TABLET (FP) PO PRN (21:24)
[2022-04-10] MEDS ORDERED: MELATONIN 5 MG TABLETS PO SCH (22:00)
[2022-04-11] MEDS: THIAMINE HCL 100 MG TABLET (FP) PO SCH ×2 (02:11→21:54)
[2022-04-11] MEDS: PRENATAL VITAMINS W/ FOLIC ACID TABLET (FP) PO SCH (09:15)
[2022-04-11] MEDS: NICOTINE 14 MG/24 HOURS TOPICAL PATCH TD SCH (09:15)
[2022-04-11 10:49] LABS: HEMATOCRIT 37.4 % (35.4-49); HEMOGLOBIN 12.7 GM/dL (11.7-16.9); MCH 33.3 pg (25.7-33.7); PLATELET COUNT 215 10^3/uL (134-434); RBC 3.82 M/mm3 (4.00-5.60); RDW 13.2 % (11.9-15.9); WHITE BLOOD COUNT 3.7 K/mm3 (4.0-10.0)
[2022-04-11 10:52] LABS: PH,URINE 7.5 (5.0-8.0); URINE APPEARANCE TURBID; URINE BILIRUBIN NEGATIVE (NEGATIVE); URINE COLOR YELLOW; URINE GLUCOSE (UA) NEGATIVE (NEGATIVE); URINE KETONE NEGATIVE (NEGATIVE); URINE LEUK ESTERASE NEGATIVE (NEGATIVE); URINE NITRITE NEGATIVE (NEGATIVE); URINE PROTEIN NEGATIVE (NEGATIVE)
[2022-04-11 10:57] LABS: ALBUMIN 3.2 g/dl (3.4-5.0); CALCIUM 8.4 mg/dL (8.5-10.1)
[2022-04-11 10:58] LABS: BLOOD UREA NITROGEN 16.1 mg/dL (7-18)
[2022-04-11 11:01] LABS: CREATININE 1.2 mg/dL (0.55-1.3)
[2022-04-11 11:02] LABS: BILIRUBIN,TOTAL 0.2 mg/dL (0.2-1); TOT PROT 6.5 g/dl (6.4-8.2)
[2022-04-11 11:19] LABS: SYPHILIS W/ RPR CONF NON-REACTIVE (NONREACTIVE)
[2022-04-12] MEDS: PRENATAL VITAMINS W/ FOLIC ACID TABLET (FP) PO SCH (10:00)
[2022-04-12] MEDS: NICOTINE 14 MG/24 HOURS TOPICAL PATCH TD SCH (10:00)
[2022-04-12] MEDS: THIAMINE HCL 100 MG TABLET (FP) PO SCH (21:28)
[2022-04-13] MEDS: PRENATAL VITAMINS W/ FOLIC ACID TABLET (FP) PO SCH (10:06)
[2022-04-13] MEDS: NICOTINE 14 MG/24 HOURS TOPICAL PATCH TD SCH (10:07)
[2022-04-13] MEDS: VITAMINS A AND D TOPICAL OINTMENT 60 GM TUBE TP SCH (18:58)
[2022-04-13] MEDS: THIAMINE HCL 100 MG TABLET (FP) PO SCH (22:19)
[2022-04-14] MEDS: VITAMINS A AND D TOPICAL OINTMENT 60 GM TUBE TP SCH ×3 (01:02→12:53)
[2022-04-14] MEDS: PRENATAL VITAMINS W/ FOLIC ACID TABLET (FP) PO SCH (09:55)
[2022-04-14] MEDS: NICOTINE 14 MG/24 HOURS TOPICAL PATCH TD SCH (09:56)
[2022-04-14] MEDS ORDERED: SALICYLIC ACID 1 APPLIC BOTTLE TP ONE (13:45)
[2022-04-14] MEDS: THIAMINE HCL 100 MG TABLET (FP) PO SCH (21:13)
[2022-04-14] MEDS: TOLNAFTATE 1% CREAM 15 GM TUBE TP SCH (21:14)
[2022-04-15] MEDS: PRENATAL VITAMINS W/ FOLIC ACID TABLET (FP) PO SCH (09:16)
[2022-04-15] MEDS: NICOTINE 14 MG/24 HOURS TOPICAL PATCH TD SCH (09:17)
[2022-04-15] MEDS: TOLNAFTATE 1% CREAM 15 GM TUBE TP SCH ×2 (09:17→21:50)
[2022-04-15] MEDS: THIAMINE HCL 100 MG TABLET (FP) PO SCH (21:50)
[2022-04-16] MEDS: LEVOTHYROXINE NA 25 MCG TABLET (FP) PO SCH (08:43)
[2022-04-16] MEDS: PRENATAL VITAMINS W/ FOLIC ACID TABLET (FP) PO SCH (10:15)
[2022-04-16] MEDS: NICOTINE 14 MG/24 HOURS TOPICAL PATCH TD SCH (10:15)
[2022-04-16] MEDS: TOLNAFTATE 1% CREAM 15 GM TUBE TP SCH ×2 (10:15→21:29)
[2022-04-16] MEDS: QUEtiapine FUMARATE 50 MG TABLET PO PRN (21:29)
[2022-04-16] MEDS: THIAMINE HCL 100 MG TABLET (FP) PO SCH (21:29)
[2022-04-17] MEDS: LEVOTHYROXINE NA 25 MCG TABLET (FP) PO SCH (06:50)
[2022-04-17] MEDS: PRENATAL VITAMINS W/ FOLIC ACID TABLET (FP) PO SCH (09:05)
[2022-04-17] MEDS: TOLNAFTATE 1% CREAM 15 GM TUBE TP SCH ×2 (09:05→21:19)
[2022-04-17] MEDS: NICOTINE 14 MG/24 HOURS TOPICAL PATCH TD SCH (09:06)
[2022-04-17] MEDS: THIAMINE HCL 100 MG TABLET (FP) PO SCH (21:18)
[2022-04-17] MEDS: QUEtiapine FUMARATE 50 MG TABLET PO PRN (21:19)
[2022-04-18] MEDS: LEVOTHYROXINE NA 25 MCG TABLET (FP) PO SCH (06:29)
[2022-04-18] MEDS: TOLNAFTATE 1% CREAM 15 GM TUBE TP SCH ×2 (09:53→21:28)
[2022-04-18] MEDS: PRENATAL VITAMINS W/ FOLIC ACID TABLET (FP) PO SCH (09:53)
[2022-04-18] MEDS: NICOTINE 14 MG/24 HOURS TOPICAL PATCH TD SCH (09:53)
[2022-04-18] MEDS: QUEtiapine FUMARATE 50 MG TABLET PO PRN (21:27)
[2022-04-18] MEDS: THIAMINE HCL 100 MG TABLET (FP) PO SCH (21:28)
[2022-04-19] MEDS: LEVOTHYROXINE NA 25 MCG TABLET (FP) PO SCH (06:20)
[2022-04-19] MEDS: NICOTINE 14 MG/24 HOURS TOPICAL PATCH TD SCH (10:02)
[2022-04-19] MEDS: PRENATAL VITAMINS W/ FOLIC ACID TABLET (FP) PO SCH (10:02)
[2022-04-19] MEDS: TOLNAFTATE 1% CREAM 15 GM TUBE TP SCH ×2 (10:03→21:36)
[2022-04-19] MEDS: THIAMINE HCL 100 MG TABLET (FP) PO SCH (21:35)
[2022-04-19] MEDS: QUEtiapine FUMARATE 50 MG TABLET PO PRN (21:36)
[2022-04-20] MEDS: LEVOTHYROXINE NA 25 MCG TABLET (FP) PO SCH (06:44)
[2022-04-20] MEDS: NICOTINE 14 MG/24 HOURS TOPICAL PATCH TD SCH (09:20)
[2022-04-20] MEDS: TOLNAFTATE 1% CREAM 15 GM TUBE TP SCH ×2 (09:20→21:56)
[2022-04-20] MEDS: PRENATAL VITAMINS W/ FOLIC ACID TABLET (FP) PO SCH (09:20)
[2022-04-20] MEDS: THIAMINE HCL 100 MG TABLET (FP) PO SCH (21:56)
[2022-04-20] MEDS: QUEtiapine FUMARATE 50 MG TABLET PO PRN (21:58)
[2022-04-21] MEDS: LEVOTHYROXINE NA 25 MCG TABLET (FP) PO SCH (06:20)
[2022-04-21 06:52] VITALS: BP 109/73; PULSE 64; RESP 18; TEMP 97.5
== END 2022-04-21 10:00 | disposition home or self-care (01) | DRG 772 ==
LOC: YASAS 19:39 → Y3E 21:12
PROVIDERS: ADMIT Allergy & Immunology; ATTEND Psychiatry & Neurology Pain Medicine
PROC: HZ42ZZZ Group Counseling for Substance Abuse Treatment, Cognitive-Behavioral (ICD-10-PCS; principal; 2022-04-10)
DX: F14.20 Cocaine dependence, uncomplicated (principal); F12.20 Cannabis dependence, uncomplicated; F17.210 Nicotine dependence, cigarettes, uncomplicated; F19.282 Other psychoactive substance dependence with psychoactive substance-induced sleep disorder; F19.24 Other psychoactive substance dependence with psychoactive substance-induced mood disorder; F32.A Depression, unspecified; E03.9 Hypothyroidism, unspecified; L84 Corns and callosities; Z86.11 Personal history of tuberculosis; Z28.310 Unvaccinated for COVID-19; Z28.9 Immunization not carried out for unspecified reason
CPT/HCPCS: 36415; 71046-TC-FY; 80053; 81003; 82962; 85027; 86780; 86803; C9803-CS; U0003; U0005

== ENCOUNTER 2022-06-17 13:45 | Inpatient (IN) | payer OTHER ==
[2022-06-17 15:47] VITALS: BMI 22.4
[2022-06-17] MEDS ORDERED: guaiFENesin 200 MG/10 ML 10 ML UNIT-DOSE CUPS PO PRN (18:02)
[2022-06-17] MEDS ORDERED: ONDANSETRON *ODT* 4 MG TABLET SL PRN (18:02)
[2022-06-17] MEDS ORDERED: MAGNESIUM HYDROX 2400MG/30ML ORAL SUSPENSION 30 ML CUP PO PRN (18:02)
[2022-06-17] MEDS ORDERED: MAG HYDROX/AL HYDROX/SIMETH 30 ML UNIT-DOSE CUP PO PRN (18:02)
[2022-06-17] MEDS ORDERED: POLYETHYLENE GLYCOL (HEALTHYLAX) 3350 17 GM PACKET PO PRN (18:02)
[2022-06-17] MEDS ORDERED: LOPERAMIDE HCL 2 MG CAPSULE PO PRN (18:02)
[2022-06-17] MEDS ORDERED: BENZOCAINE/MENTHOL (CHLORASEPTIC ) LOZENGE MM PRN (18:02)
[2022-06-17] MEDS ORDERED: ACETAMINOPHEN 325 MG TABLET (FP) PO PRN ×2 (18:02)
[2022-06-17] MEDS ORDERED: BISMUTH SUBSALICYLATE 524 MG/30 ML PO PRN (18:02)
[2022-06-17] MEDS ORDERED: IBUPROFEN 400 MG TABLET (FP) PO PRN (18:02)
[2022-06-17] MEDS ORDERED: P-EPHED 60MG/TRIPROLIDI 2.5MG TABLET PO PRN (18:02)
[2022-06-17] MEDS ORDERED: METHOCARBAMOL 500 MG TABLET PO PRN (18:02)
[2022-06-17] MEDS ORDERED: IBUPROFEN 600 MG TABLET (FP) PO PRN (18:02)
[2022-06-17] MEDS ORDERED: DICYCLOMINE HCL 10 MG CAPSULE PO PRN (18:02)
[2022-06-17] MEDS ORDERED: NICOTINE POLACRILEX 2 MG GUM BUC PRN (18:02)
[2022-06-17] MEDS: hydrOXYzine PAMOATE 25 MG CAPSULE (FP) PO PRN (19:06)
[2022-06-17] MEDS: THIAMINE HCL 100 MG TABLET (FP) PO SCH (21:55)
[2022-06-17] MEDS: MELATONIN 5 MG TABLETS PO PRN (21:55)
[2022-06-18] MEDS ORDERED: chlordiazePOXIDE HCL 25 MG CAPSULE PO PRN (08:21)
[2022-06-18 09:44] LABS: HEMATOCRIT 39.6 % (35.4-49); HEMOGLOBIN 12.7 GM/dL (11.7-16.9); MCH 31.1 pg (25.7-33.7); MCHC 32.1 g/dl (32.0-35.9); MEAN CELL VOLUME 96.9 fl (80-96); MEAN PLT VOLUME 8.1 fl (7.5-11.1); PLATELET COUNT 261 10^3/uL (134-434); RBC 4.09 M/mm3 (4.00-5.60); RDW 13.6 % (11.9-15.9); WHITE BLOOD COUNT 4.3 K/mm3 (4.0-10.0)
[2022-06-18 09:49] LABS: ALBUMIN 2.9 g/dl (3.4-5.0); BLOOD UREA NITROGEN 15.4 mg/dL (7-18)
[2022-06-18 09:50] LABS: CALCIUM 8.2 mg/dL (8.5-10.1)
[2022-06-18 09:57] LABS: CREATININE 0.9 mg/dL (0.55-1.3)
[2022-06-18 09:58] LABS: BILIRUBIN,TOTAL 0.2 mg/dL (0.2-1)
[2022-06-18] MEDS: chlordiazePOXIDE HCL 25 MG CAPSULE PO SCH ×3 (10:38→22:32)
[2022-06-18] MEDS: hydrOXYzine PAMOATE 25 MG CAPSULE (FP) PO PRN (10:39)
[2022-06-18] MEDS: PRENATAL VITAMINS W/ FOLIC ACID TABLET (FP) PO SCH (10:39)
[2022-06-18] MEDS: LEVOTHYROXINE NA 25 MCG TABLET (FP) PO SCH (12:40)
[2022-06-18] MEDS ORDERED: LEVOTHYROXINE NA 75 MCG TABLET (FP) PO ONE (13:00)
[2022-06-18] MEDS ORDERED: LEVOTHYROXINE NA 25 MCG TABLET (FP) PO ONE (13:00)
[2022-06-18] MEDS: MELATONIN 5 MG TABLETS PO PRN (22:32)
[2022-06-18] MEDS: THIAMINE HCL 100 MG TABLET (FP) PO SCH (22:32)
[2022-06-19] MEDS: chlordiazePOXIDE HCL 25 MG CAPSULE PO SCH ×3 (05:54→17:19)
[2022-06-19] MEDS: LEVOTHYROXINE NA 25 MCG TABLET (FP) PO SCH (06:01)
[2022-06-19] MEDS: PRENATAL VITAMINS W/ FOLIC ACID TABLET (FP) PO SCH (10:46)
[2022-06-19 13:25] VITALS: TEMP 97.5
[2022-06-19 21:04] VITALS: BP 116/61; PULSE 64; RESP 18
[2022-06-20] MEDS ORDERED: chlordiazePOXIDE HCL 25 MG CAPSULE PO SCH (05:00)
[2022-06-21] MEDS ORDERED: chlordiazePOXIDE HCL 10 MG CAPSULE PO PRN
[2022-06-21] MEDS ORDERED: chlordiazePOXIDE HCL 10 MG CAPSULE PO SCH (05:00)
[2022-06-22] MEDS ORDERED: chlordiazePOXIDE HCL 10 MG CAPSULE PO SCH (05:00)
[2022-06-23] MEDS ORDERED: chlordiazePOXIDE HCL 10 MG CAPSULE PO ONE (05:00)
== END 2022-06-19 21:37 | disposition left against medical advice (07) | DRG 770 ==
LOC: YASAS 13:45 → UNDOADMIN 18:04 → Y6N 18:04
PROVIDERS: ADMIT Allergy & Immunology; ATTEND Surgery
PROC: HZ2ZZZZ Detoxification Services for Substance Abuse Treatment (ICD-10-PCS; principal; 2022-06-17)
DX: F10.230 Alcohol dependence with withdrawal, uncomplicated (principal); F14.20 Cocaine dependence, uncomplicated; F12.20 Cannabis dependence, uncomplicated; F17.210 Nicotine dependence, cigarettes, uncomplicated; F32.A Depression, unspecified; E03.9 Hypothyroidism, unspecified; Z86.11 Personal history of tuberculosis; Z28.310 Unvaccinated for COVID-19; Z28.9 Immunization not carried out for unspecified reason; Z91.013 Allergy to seafood
CPT/HCPCS: 36415; 80053; 85027; 86780; 87811; C9803-CS; U0003; U0005

== ENCOUNTER 2022-07-17 17:08 | Inpatient (IN) | payer OTHER ==
[2022-07-17 19:03] VITALS: BMI 20.7
[2022-07-17] MEDS ORDERED: NICOTINE POLACRILEX 2 MG GUM BC PRN (21:00)
[2022-07-17] MEDS ORDERED: MAG HYDROX/AL HYDROX/SIMETH 30 ML UNIT-DOSE CUP PO PRN (21:00)
[2022-07-17] MEDS ORDERED: POLYETHYLENE GLYCOL (HEALTHYLAX) 3350 17 GM PACKET PO PRN (21:00)
[2022-07-17] MEDS ORDERED: hydrOXYzine PAMOATE 25 MG CAPSULE (FP) PO PRN (21:00)
[2022-07-17] MEDS ORDERED: P-EPHED 60MG/TRIPROLIDI 2.5MG TABLET PO PRN (21:00)
[2022-07-17] MEDS ORDERED: MAGNESIUM HYDROX 2400MG/30ML ORAL SUSPENSION 30 ML CUP PO PRN (21:00)
[2022-07-17] MEDS ORDERED: guaiFENesin 200 MG/10 ML 10 ML UNIT-DOSE CUPS PO PRN (21:00)
[2022-07-17] MEDS ORDERED: ACETAMINOPHEN 325 MG TABLET (FP) PO PRN (21:00)
[2022-07-17] MEDS ORDERED: BENZOCAINE/MENTHOL (CHLORASEPTIC ) LOZENGE MM PRN (21:00)
[2022-07-17] MEDS ORDERED: IBUPROFEN 400 MG TABLET (FP) PO PRN (21:00)
[2022-07-18] MEDS: MELATONIN 5 MG TABLETS PO SCH ×2 (00:30→21:15)
[2022-07-18] MEDS: THIAMINE HCL 100 MG TABLET (FP) PO SCH ×2 (00:30→21:15)
[2022-07-18] MEDS: PRENATAL VITAMINS W/ FOLIC ACID TABLET (FP) PO SCH (10:04)
[2022-07-18] MEDS: NICOTINE 14 MG/24 HOURS TOPICAL PATCH TD SCH (10:04)
[2022-07-18 11:13] LABS: HEMATOCRIT 41.1 % (35.4-49); HEMOGLOBIN 13.2 GM/dL (11.7-16.9); MCH 31.1 pg (25.7-33.7); MEAN PLT VOLUME 8.4 fl (7.5-11.1); PLATELET COUNT 263 10^3/uL (134-434); RBC 4.24 M/mm3 (4.00-5.60); WHITE BLOOD COUNT 6.4 K/mm3 (4.0-10.0)
[2022-07-18 11:16] LABS: CALCIUM 8.6 mg/dL (8.5-10.1)
[2022-07-18 11:18] LABS: ALBUMIN 3.1 g/dl (3.4-5.0); BLOOD UREA NITROGEN 13.6 mg/dL (7-18)
[2022-07-18 11:22] LABS: BILIRUBIN,TOTAL 0.2 mg/dL (0.2-1); TOT PROT 6.6 g/dl (6.4-8.2)
[2022-07-18 11:25] LABS: URINE APPEARANCE CLEAR; URINE BILIRUBIN NEGATIVE (NEGATIVE); URINE COLOR YELLOW; URINE GLUCOSE (UA) NEGATIVE (NEGATIVE); URINE KETONE TRACE (NEGATIVE); URINE LEUK ESTERASE NEGATIVE (NEGATIVE); URINE NITRITE NEGATIVE (NEGATIVE); URINE PROTEIN TRACE (NEGATIVE); URINE UROBILINOGEN 0.2 mg/dL (0.2-1.0)
[2022-07-18 12:21] LABS: SYPHILIS W/ RPR CONF NON-REACTIVE (NONREACTIVE)
[2022-07-19] MEDS: LOPERAMIDE HCL 2 MG CAPSULE PO PRN (08:59)
[2022-07-19] MEDS: NICOTINE 14 MG/24 HOURS TOPICAL PATCH TD SCH (08:59)
[2022-07-19] MEDS: PRENATAL VITAMINS W/ FOLIC ACID TABLET (FP) PO SCH (08:59)
[2022-07-19] MEDS ORDERED: LEVOTHYROXINE NA 75 MCG TABLET (FP) PO SCH (10:45)
[2022-07-19] MEDS ORDERED: LEVOTHYROXINE NA 25 MCG TABLET (FP) PO SCH (11:20)
[2022-07-19] MEDS: LEVOTHYROXINE NA 25 MCG TABLET (FP) PO SCH (11:52)
[2022-07-19] MEDS: THIAMINE HCL 100 MG TABLET (FP) PO SCH (21:30)
[2022-07-19] MEDS: QUEtiapine FUMARATE 50 MG TABLET PO SCH (21:30)
[2022-07-20] MEDS: PRENATAL VITAMINS W/ FOLIC ACID TABLET (FP) PO SCH (10:05)
[2022-07-20] MEDS: LEVOTHYROXINE NA 25 MCG TABLET (FP) PO SCH (10:06)
[2022-07-20] MEDS: NICOTINE 14 MG/24 HOURS TOPICAL PATCH TD SCH (10:06)
[2022-07-20] MEDS: QUEtiapine FUMARATE 50 MG TABLET PO SCH (21:46)
[2022-07-20] MEDS: THIAMINE HCL 100 MG TABLET (FP) PO SCH (21:47)
[2022-07-21] MEDS: NICOTINE 14 MG/24 HOURS TOPICAL PATCH TD SCH (09:48)
[2022-07-21] MEDS: PRENATAL VITAMINS W/ FOLIC ACID TABLET (FP) PO SCH (09:48)
[2022-07-21] MEDS: LEVOTHYROXINE NA 25 MCG TABLET (FP) PO SCH (09:48)
[2022-07-21] MEDS: QUEtiapine FUMARATE 50 MG TABLET PO SCH (21:21)
[2022-07-21] MEDS: THIAMINE HCL 100 MG TABLET (FP) PO SCH (21:21)
[2022-07-22] MEDS: LEVOTHYROXINE NA 25 MCG TABLET (FP) PO SCH (06:30)
[2022-07-22 06:46] VITALS: RESP 18
[2022-07-22] MEDS: CYANOCOBALAMIN (VITAMIN B-12) 100 MCG TABLET PO SCH (11:13)
[2022-07-22] MEDS: PRENATAL VITAMINS W/ FOLIC ACID TABLET (FP) PO SCH (11:13)
[2022-07-22] MEDS: NICOTINE 14 MG/24 HOURS TOPICAL PATCH TD SCH (11:13)
[2022-07-22] MEDS: THIAMINE HCL 100 MG TABLET (FP) PO SCH (21:37)
[2022-07-22] MEDS: QUEtiapine FUMARATE 100 MG TABLET (FP) PO SCH (21:38)
[2022-07-23] MEDS: LEVOTHYROXINE NA 25 MCG TABLET (FP) PO SCH (06:21)
[2022-07-23] MEDS: PRENATAL VITAMINS W/ FOLIC ACID TABLET (FP) PO SCH (09:49)
[2022-07-23] MEDS: CYANOCOBALAMIN (VITAMIN B-12) 100 MCG TABLET PO SCH (09:49)
[2022-07-23] MEDS: NICOTINE 14 MG/24 HOURS TOPICAL PATCH TD SCH (09:49)
[2022-07-23] MEDS: TOLNAFTATE 1% CREAM 15 GM TUBE TP SCH ×2 (15:32→21:15)
[2022-07-23] MEDS: SALICYLIC ACID 1 APPLIC BOTTLE TP SCH (15:50)
[2022-07-23] MEDS: THIAMINE HCL 100 MG TABLET (FP) PO SCH (21:15)
[2022-07-23] MEDS: QUEtiapine FUMARATE 100 MG TABLET (FP) PO SCH (21:15)
[2022-07-23] MEDS ORDERED: TOLNAFTATE 1% CREAM 15 GM TUBE TP SCH (22:00)
[2022-07-24] MEDS: LEVOTHYROXINE NA 25 MCG TABLET (FP) PO SCH (06:00)
[2022-07-24 06:53] VITALS: PULSE 84; TEMP 97.7
[2022-07-24] MEDS: CYANOCOBALAMIN (VITAMIN B-12) 100 MCG TABLET PO SCH (09:48)
[2022-07-24] MEDS: PRENATAL VITAMINS W/ FOLIC ACID TABLET (FP) PO SCH (09:48)
[2022-07-24] MEDS: SALICYLIC ACID 1 APPLIC BOTTLE TP SCH (09:49)
[2022-07-24] MEDS: TOLNAFTATE 1% CREAM 15 GM TUBE TP SCH ×2 (09:49→21:27)
[2022-07-24] MEDS: NICOTINE 14 MG/24 HOURS TOPICAL PATCH TD SCH (09:49)
[2022-07-24] MEDS: THIAMINE HCL 100 MG TABLET (FP) PO SCH (21:27)
[2022-07-24] MEDS: QUEtiapine FUMARATE 100 MG TABLET (FP) PO SCH (21:27)
[2022-07-25] MEDS: LOPERAMIDE HCL 2 MG CAPSULE PO PRN (05:55)
[2022-07-25] MEDS: LEVOTHYROXINE NA 25 MCG TABLET (FP) PO SCH (06:20)
[2022-07-25 06:50] VITALS: BP 102/63
== END 2022-07-25 09:30 | disposition home or self-care (01) | DRG 772 ==
LOC: YASAS 17:08 → Y3W 23:31
PROVIDERS: ADMIT Allergy & Immunology; ATTEND Psychiatry & Neurology Pain Medicine
PROC: HZ42ZZZ Group Counseling for Substance Abuse Treatment, Cognitive-Behavioral (ICD-10-PCS; principal; 2022-07-17)
DX: F10.20 Alcohol dependence, uncomplicated (principal); F14.20 Cocaine dependence, uncomplicated; F12.20 Cannabis dependence, uncomplicated; F17.210 Nicotine dependence, cigarettes, uncomplicated; F19.282 Other psychoactive substance dependence with psychoactive substance-induced sleep disorder; F19.24 Other psychoactive substance dependence with psychoactive substance-induced mood disorder; F31.9 Bipolar disorder, unspecified; E03.9 Hypothyroidism, unspecified; M17.0 Bilateral primary osteoarthritis of knee; L84 Corns and callosities; Z86.11 Personal history of tuberculosis
CPT/HCPCS: 36415; 80053; 81003; 85027; 86780; 86803; C9803-CS; U0003; U0005

== ENCOUNTER 2022-09-29 16:27 | Inpatient (IN) | payer OTHER ==
[2022-09-29 18:27] VITALS: BMI 22.1
[2022-09-29] MEDS ORDERED: ACETAMINOPHEN 325 MG TABLET (FP) PO PRN (19:43)
[2022-09-29] MEDS ORDERED: IBUPROFEN 600 MG TABLET (FP) PO PRN (19:43)
[2022-09-29] MEDS ORDERED: ONDANSETRON *ODT* 4 MG TABLET SL PRN (19:43)
[2022-09-29] MEDS ORDERED: NALOXONE HCL (KLOXXADO) 8 MG SPRAY NS PRN (19:43)
[2022-09-29] MEDS ORDERED: MAGNESIUM HYDROX 2400MG/30ML ORAL SUSPENSION 30 ML CUP PO PRN (19:43)
[2022-09-29] MEDS ORDERED: NALOXONE HCL 0.4 MG/ML VIAL IM PRN (19:43)
[2022-09-29] MEDS ORDERED: METHOCARBAMOL 500 MG TABLET PO PRN (19:43)
[2022-09-29] MEDS ORDERED: MAG HYDROX/AL HYDROX/SIMETH 30 ML UNIT-DOSE CUP PO PRN (19:43)
[2022-09-29] MEDS ORDERED: NICOTINE POLACRILEX 2 MG GUM BUC PRN (19:43)
[2022-09-29] MEDS ORDERED: IBUPROFEN 400 MG TABLET (FP) PO PRN (19:43)
[2022-09-29] MEDS ORDERED: POLYETHYLENE GLYCOL (HEALTHYLAX) 3350 17 GM PACKET PO PRN (19:43)
[2022-09-29] MEDS ORDERED: guaiFENesin 600 MG TABLET.ER (FP) PO PRN (19:43)
[2022-09-29] MEDS ORDERED: LOPERAMIDE HCL 2 MG CAPSULE PO PRN (19:43)
[2022-09-29] MEDS ORDERED: hydrOXYzine PAMOATE 25 MG CAPSULE (FP) PO PRN (19:43)
[2022-09-29] MEDS ORDERED: BENZOCAINE/MENTHOL (CHLORASEPTIC ) LOZENGE MM PRN (19:43)
[2022-09-29] MEDS ORDERED: DICYCLOMINE HCL 10 MG CAPSULE PO PRN (19:43)
[2022-09-29] MEDS ORDERED: BISMUTH SUBSALICYLATE 524 MG/30 ML PO PRN (19:43)
[2022-09-29] MEDS ORDERED: BENZONATATE 200 MG CAPSULE PO PRN (19:43)
[2022-09-29] MEDS: THIAMINE HCL 100 MG TABLET (FP) PO SCH (22:51)
[2022-09-29] MEDS: MELATONIN 5 MG TABLETS PO SCH (22:52)
[2022-09-30] MEDS ORDERED: NICOTINE 14 MG/24 HOURS TOPICAL PATCH TD SCH (10:00)
[2022-09-30] MEDS ORDERED: PRENATAL VITAMINS W/ FOLIC ACID TABLET (FP) PO SCH (10:00)
[2022-09-30 10:37] LABS: HEMATOCRIT 37.2 % (35.4-49); HEMOGLOBIN 12.4 GM/dL (11.7-16.9); MCH 31.4 pg (25.7-33.7); MCHC 33.2 g/dl (32.0-35.9); MEAN CELL VOLUME 94.4 fl (80-96); MEAN PLT VOLUME 7.7 fl (7.5-11.1); PLATELET COUNT 238 10^3/uL (134-434); RBC 3.94 M/mm3 (4.00-5.60); RDW 13.5 % (11.9-15.9); WHITE BLOOD COUNT 5.8 K/mm3 (4.0-10.0)
[2022-09-30 11:45] LABS: BLOOD UREA NITROGEN 17.1 mg/dL (7-18); CALCIUM 8.7 mg/dL (8.5-10.1)
[2022-09-30 11:47] LABS: ALBUMIN 2.9 g/dl (3.4-5.0)
[2022-09-30 11:48] LABS: TOT PROT 6.2 g/dl (6.4-8.2)
[2022-09-30 11:52] LABS: BILIRUBIN,TOTAL 0.2 mg/dL (0.2-1)
[2022-09-30 12:17] LABS: HIV INTERPRETATION NEGATIVE (NEGATIVE)
[2022-09-30] MEDS ORDERED: LEVOTHYROXINE NA 25 MCG TABLET (FP) PO ONE (14:00)
[2022-09-30 21:21] VITALS: RESP 18
[2022-09-30] MEDS ORDERED: QUEtiapine FUMARATE 50 MG TABLET PO SCH (22:00)
[2022-09-30] MEDS: THIAMINE HCL 100 MG TABLET (FP) PO SCH (22:14)
[2022-09-30] MEDS: MELATONIN 5 MG TABLETS PO SCH (22:14)
[2022-10-01] MEDS ORDERED: LEVOTHYROXINE NA 25 MCG TABLET (FP) PO SCH (07:00)
[2022-10-01 09:47] VITALS: BP 104/60; PULSE 61; TEMP 97.7
== END 2022-10-01 09:41 | disposition other institution (70) | DRG 774 ==
LOC: YASAS 16:27 → UNDOADMIN 22:17 → Y6N 22:17
PROVIDERS: ADMIT Allergy & Immunology; ATTEND Surgery
PROC: HZ2ZZZZ Detoxification Services for Substance Abuse Treatment (ICD-10-PCS; principal; 2022-09-29)
DX: F10.230 Alcohol dependence with withdrawal, uncomplicated (principal); F14.20 Cocaine dependence, uncomplicated; F12.20 Cannabis dependence, uncomplicated; F17.210 Nicotine dependence, cigarettes, uncomplicated; F19.282 Other psychoactive substance dependence with psychoactive substance-induced sleep disorder; F39 Unspecified mood [affective] disorder; E03.9 Hypothyroidism, unspecified; G47.00 Insomnia, unspecified; L84 Corns and callosities; M17.0 Bilateral primary osteoarthritis of knee; Z86.11 Personal history of tuberculosis
CPT/HCPCS: 36415; 80053; 84443; 85027; 86780; 87389; 87811; C9803-CS; U0003; U0005

== ENCOUNTER 2022-12-19 17:32 | Inpatient (IN) | payer OTHER ==
[2022-12-19 19:44] VITALS: BMI 19.8
[2022-12-19] MEDS ORDERED: P-EPHED 60MG/TRIPROLIDI 2.5MG TABLET PO PRN (21:19)
[2022-12-19] MEDS ORDERED: NICOTINE POLACRILEX 2 MG GUM BUC PRN (21:19)
[2022-12-19] MEDS ORDERED: POLYETHYLENE GLYCOL (HEALTHYLAX) 3350 17 GM PACKET PO PRN (21:19)
[2022-12-19] MEDS ORDERED: MAGNESIUM HYDROX 2400MG/30ML ORAL SUSPENSION 30 ML CUP PO PRN (21:19)
[2022-12-19] MEDS ORDERED: guaiFENesin 600 MG TABLET.ER (FP) PO PRN (21:19)
[2022-12-19] MEDS ORDERED: ONDANSETRON *ODT* 4 MG TABLET SL PRN (21:19)
[2022-12-19] MEDS ORDERED: MAG HYDROX/AL HYDROX/SIMETH 30 ML UNIT-DOSE CUP PO PRN (21:19)
[2022-12-19] MEDS ORDERED: NALOXONE HCL 0.4 MG/ML VIAL IM PRN (21:19)
[2022-12-19] MEDS ORDERED: ACETAMINOPHEN 325 MG TABLET (FP) PO PRN (21:19)
[2022-12-19] MEDS ORDERED: BENZONATATE 200 MG CAPSULE PO PRN (21:19)
[2022-12-19] MEDS ORDERED: BISMUTH SUBSALICYLATE 524 MG/30 ML PO PRN (21:19)
[2022-12-19] MEDS ORDERED: IBUPROFEN 600 MG TABLET (FP) PO PRN (21:19)
[2022-12-19] MEDS ORDERED: DICYCLOMINE HCL 10 MG CAPSULE PO PRN (21:19)
[2022-12-19] MEDS ORDERED: NALOXONE HCL (KLOXXADO) 8 MG SPRAY NS PRN (21:19)
[2022-12-19] MEDS ORDERED: LOPERAMIDE HCL 2 MG CAPSULE PO PRN (21:19)
[2022-12-19] MEDS ORDERED: IBUPROFEN 400 MG TABLET (FP) PO PRN (21:19)
[2022-12-19] MEDS ORDERED: BENZOCAINE/MENTHOL (CHLORASEPTIC ) LOZENGE MM PRN (21:19)
[2022-12-19] MEDS ORDERED: MELATONIN 5 MG TABLETS PO SCH (22:00)
[2022-12-19] MEDS ORDERED: MELATONIN 5 MG TABLETS ONE (22:12)
[2022-12-19] MEDS: THIAMINE HCL 100 MG TABLET (FP) PO SCH (22:14)
[2022-12-19] MEDS: hydrOXYzine PAMOATE 25 MG CAPSULE (FP) PO PRN (22:45)
[2022-12-20] MEDS: LEVOTHYROXINE NA 25 MCG TABLET (FP) PO SCH (06:19)
[2022-12-20] MEDS: NICOTINE 14 MG/24 HOURS TOPICAL PATCH TD SCH (10:29)
[2022-12-20] MEDS: PRENATAL VITAMINS W/ FOLIC ACID TABLET (FP) PO SCH (11:00)
[2022-12-20] MEDS: METHOCARBAMOL 500 MG TABLET PO PRN ×2 (11:07→17:12)
[2022-12-20] MEDS: hydrOXYzine PAMOATE 25 MG CAPSULE (FP) PO PRN ×2 (11:08→17:12)
[2022-12-20] MEDS ORDERED: QUEtiapine FUMARATE 50 MG TABLET PO SCH (22:00)
[2022-12-20] MEDS: THIAMINE HCL 100 MG TABLET (FP) PO SCH (22:19)
[2022-12-21] MEDS: hydrOXYzine PAMOATE 25 MG CAPSULE (FP) PO PRN (05:38)
[2022-12-21] MEDS: LEVOTHYROXINE NA 25 MCG TABLET (FP) PO SCH (06:24)
[2022-12-21] MEDS ORDERED: LORazepam 1 MG TABLET PO PRN (08:49)
[2022-12-21] MEDS: NICOTINE 14 MG/24 HOURS TOPICAL PATCH TD SCH (10:38)
[2022-12-21] MEDS: LORazepam 2 MG TABLET PO SCH ×3 (10:40→23:11)
[2022-12-21] MEDS: PRENATAL VITAMINS W/ FOLIC ACID TABLET (FP) PO SCH (10:40)
[2022-12-21] MEDS: CEPHALEXIN MONOHYDRATE 500 MG CAPSULE (UD) PO SCH (23:11)
[2022-12-21] MEDS: THIAMINE HCL 100 MG TABLET (FP) PO SCH (23:11)
[2022-12-21] MEDS: BACITRACIN 0.9 GM PACKET TP SCH (23:12)
[2022-12-22] MEDS: CEPHALEXIN MONOHYDRATE 500 MG CAPSULE (UD) PO SCH ×3 (06:00→22:18)
[2022-12-22] MEDS: LORazepam 1 MG TABLET PO SCH ×4 (06:00→22:19)
[2022-12-22] MEDS: LEVOTHYROXINE NA 25 MCG TABLET (FP) PO SCH (07:27)
[2022-12-22] MEDS: PRENATAL VITAMINS W/ FOLIC ACID TABLET (FP) PO SCH (10:32)
[2022-12-22] MEDS: BACITRACIN 0.9 GM PACKET TP SCH ×2 (10:33→22:21)
[2022-12-22] MEDS: NICOTINE 14 MG/24 HOURS TOPICAL PATCH TD SCH (10:35)
[2022-12-22] MEDS: THIAMINE HCL 100 MG TABLET (FP) PO SCH (22:18)
[2022-12-23] MEDS ORDERED: LORazepam 0.5 MG TABLET PO PRN
[2022-12-23] MEDS: CEPHALEXIN MONOHYDRATE 500 MG CAPSULE (UD) PO SCH (05:22)
[2022-12-23] MEDS: LORazepam 0.5 MG TABLET PO SCH ×2 (05:22→10:06)
[2022-12-23 06:11] VITALS: RESP 18
[2022-12-23] MEDS: LEVOTHYROXINE NA 25 MCG TABLET (FP) PO SCH (06:51)
[2022-12-23 09:40] VITALS: BP 106/70; PULSE 72; TEMP 98
[2022-12-23] MEDS: PRENATAL VITAMINS W/ FOLIC ACID TABLET (FP) PO SCH (10:05)
[2022-12-23] MEDS: BACITRACIN 0.9 GM PACKET TP SCH (10:05)
[2022-12-23] MEDS: NICOTINE 14 MG/24 HOURS TOPICAL PATCH TD SCH (10:06)
[2022-12-24] MEDS ORDERED: LORazepam 0.5 MG TABLET PO ONE (05:00)
== END 2022-12-23 10:28 | disposition home or self-care (01) | DRG 774 ==
LOC: YASAS 17:32 → Y6N 21:59
PROVIDERS: ADMIT Allergy & Immunology; ATTEND Surgery
PROC: HZ2ZZZZ Detoxification Services for Substance Abuse Treatment (ICD-10-PCS; principal; 2022-12-19)
DX: F10.230 Alcohol dependence with withdrawal, uncomplicated (principal); F14.20 Cocaine dependence, uncomplicated; F12.20 Cannabis dependence, uncomplicated; F17.210 Nicotine dependence, cigarettes, uncomplicated; F19.282 Other psychoactive substance dependence with psychoactive substance-induced sleep disorder; F19.24 Other psychoactive substance dependence with psychoactive substance-induced mood disorder; E03.9 Hypothyroidism, unspecified; G47.00 Insomnia, unspecified; L03.116 Cellulitis of left lower limb; M17.0 Bilateral primary osteoarthritis of knee; R76.11 Nonspecific reaction to tuberculin skin test without active tuberculosis; W19.XXXA Unspecified fall, initial encounter; Y92.238 Other place in hospital as the place of occurrence of the external cause; Z91.81 History of falling
CPT/HCPCS: 87635

== ENCOUNTER 2024-06-23 12:32 | Inpatient (IN) | payer OTHER ==
[2024-06-23 13:02] VITALS: BMI 21.8
[2024-06-23] MEDS ORDERED: hydrOXYzine PAMOATE 25 MG CAPSULE (FP) PO PRN (13:50)
[2024-06-23] MEDS ORDERED: BISMUTH SUBSALICYLATE 262 MG/15 ML BTL PO PRN (13:50)
[2024-06-23] MEDS ORDERED: MAGNESIUM HYDROX 2400MG/30ML ORAL SUSPENSION 30 ML CUP PO PRN (13:50)
[2024-06-23] MEDS ORDERED: MAG HYDROX/AL HYDROX/SIMETH 30 ML UNIT-DOSE CUP PO PRN (13:50)
[2024-06-23] MEDS ORDERED: DICYCLOMINE HCL 10 MG CAPSULE PO PRN (13:50)
[2024-06-23] MEDS ORDERED: BENZONATATE 200 MG CAPSULE PO PRN (13:50)
[2024-06-23] MEDS ORDERED: IBUPROFEN 400 MG TABLET (FP) PO PRN (13:50)
[2024-06-23] MEDS ORDERED: BENZOCAINE/MENTHOL (CHLORASEPTIC ) LOZENGE MM PRN (13:50)
[2024-06-23] MEDS ORDERED: ACETAMINOPHEN 325 MG TABLET (FP) PO PRN (13:50)
[2024-06-23] MEDS ORDERED: POLYETHYLENE GLYCOL (HEALTHYLAX) 3350 17 GM PACKET PO PRN (13:50)
[2024-06-23] MEDS ORDERED: IBUPROFEN 600 MG TABLET (FP) PO PRN (13:50)
[2024-06-23] MEDS ORDERED: guaiFENesin 600 MG TABLET.ER (FP) PO PRN (13:50)
[2024-06-23] MEDS ORDERED: LOPERAMIDE HCL 2 MG CAPSULE PO PRN (13:50)
[2024-06-23] MEDS ORDERED: ONDANSETRON *ODT* 4 MG TABLET SL PRN (13:50)
[2024-06-23] MEDS ORDERED: NALOXONE (NARCAN) HCL 4 MG/0.1 ML SPRAY NS PRN (13:50)
[2024-06-23] MEDS: THIAMINE 100 MG TABLET PO SCH (23:11)
[2024-06-23] MEDS: MELATONIN 5 MG TABLETS PO SCH (23:11)
[2024-06-24] MEDS ORDERED: chlordiazePOXIDE HCL 25 MG CAPSULE PO PRN (09:18)
[2024-06-24] MEDS: chlordiazePOXIDE HCL 25 MG CAPSULE PO SCH (10:19)
[2024-06-24] MEDS: PRENATAL VITAMINS W/ FOLIC ACID TABLET (FP) PO SCH (10:21)
[2024-06-24 16:05] LABS: POTASSIUM 3.9 mmol/L (3.5-5.1)
[2024-06-24 16:07] LABS: CALCIUM 8.6 mg/dL (8.5-10.1)
[2024-06-24 16:11] LABS: ALBUMIN 3.2 g/dl (3.4-5.0); BLOOD UREA NITROGEN 11.7 mg/dL (7-18); CREATININE 0.9 mg/dL (0.55-1.3)
[2024-06-24 16:12] LABS: BILIRUBIN,TOTAL 0.2 mg/dL (0.2-1); TOT PROT 6.3 g/dl (6.4-8.2)
[2024-06-24 16:18] LABS: HEMATOCRIT 39.3 % (35.4-49); HEMOGLOBIN 12.7 GM/dL (11.7-16.9); MCH 31.2 pg (25.7-33.7); MCHC 32.4 g/dl (32.0-35.9); MEAN CELL VOLUME 96.4 fl (80-96); PLATELET COUNT 248 10^3/uL (134-434); RBC 4.07 M/mm3 (4.00-5.60); RDW 13.7 % (11.9-15.9); WHITE BLOOD COUNT 3.6 K/mm3 (4.0-10.0)
[2024-06-26] MEDS: chlordiazePOXIDE HCL 25 MG CAPSULE PO SCH (05:40)
[2024-06-26] MEDS: chlordiazePOXIDE HCL 10 MG CAPSULE PO SCH (17:10)
[2024-06-26] MEDS: QUEtiapine FUMARATE 50 MG TABLET PO PRN (21:39)
[2024-06-26] MEDS: METHOCARBAMOL 500 MG TABLET PO PRN (21:39)
[2024-06-27] MEDS ORDERED: chlordiazePOXIDE HCL 10 MG CAPSULE PO PRN
[2024-06-27] MEDS: chlordiazePOXIDE HCL 10 MG CAPSULE PO SCH (05:38)
[2024-06-27] MEDS: chlordiazePOXIDE 5 MG CAPSULE PO SCH (17:48)
[2024-06-28] MEDS ORDERED: chlordiazePOXIDE HCL 10 MG CAPSULE PO SCH (05:00)
[2024-06-28] MEDS: chlordiazePOXIDE 5 MG CAPSULE PO SCH (05:41)
[2024-06-28] MEDS: NALOXONE (NYS OPIOID OVERDOSE PROGRAM) 4 MG/0.1 ML SPRAY NS SCH (09:14)
[2024-06-29] MEDS ORDERED: chlordiazePOXIDE HCL 10 MG CAPSULE PO ONE (05:00)
[2024-06-29] MEDS: chlordiazePOXIDE 5 MG CAPSULE PO ONE (06:13)
[2024-06-29 10:05] VITALS: BP 104/69; PULSE 78; RESP 18; TEMP 97.8
[2024-06-30] MEDS ORDERED: LEVOTHYROXINE NA 75 MCG TABLET (FP) PO SCH (07:00)
== END 2024-06-29 11:02 | disposition home or self-care (01) | DRG 774 ==
LOC: YASAS 12:32 → Y6N 15:15
PROVIDERS: ADMIT Allergy & Immunology; ATTEND Surgery
PROC: HZ2ZZZZ Detoxification Services for Substance Abuse Treatment (ICD-10-PCS; principal; 2024-06-23)
DX: F10.230 Alcohol dependence with withdrawal, uncomplicated (principal); F14.20 Cocaine dependence, uncomplicated; F12.20 Cannabis dependence, uncomplicated; F17.210 Nicotine dependence, cigarettes, uncomplicated; F19.982 Other psychoactive substance use, unspecified with psychoactive substance-induced sleep disorder; F19.94 Other psychoactive substance use, unspecified with psychoactive substance-induced mood disorder; E03.9 Hypothyroidism, unspecified; Z91.013 Allergy to seafood; Z86.11 Personal history of tuberculosis; Z56.0 Unemployment, unspecified; Z59.00 Homelessness unspecified
CPT/HCPCS: 36415; 71046-TC-FY; 80053; 80305; 80307; 84443; 85027; 86780; 93005; 93010